=== PATIENT | male | born 1975 | race Caucasian/White ===

== ENCOUNTER 2022-02-03 14:59 | Emergency (ER) | payer OTHER | END 2022-02-03 15:57 | disposition home or self-care (01) | LOC: DL.ED 14:59 | DX: S00.81XA Abrasion of other part of head, initial encounter (principal); S60.417A Abrasion of left little finger, initial encounter; W01.0XXA Fall on same level from slipping, tripping and stumbling without subsequent striking against object, initial encounter | CPT/HCPCS: 73130-LT; 99283 ==